=== PATIENT | female | born 1990 | race Caucasian/White ===

== ENCOUNTER 2017-11-17 10:57 | Emergency (ER) | payer BC ==
[2017-11-17] MEDS ORDERED: methylPREDNISolone Sodium Succinate 125 MG/2 ML SDV IM ONE (11:39)
[2017-11-17] MEDS ORDERED: Ketorolac 60 MG/2 ML SDV IM ONE (11:39)
--- NOTE | 2017-11-17 11:39 | EDM.PDOC ---
ED HPI GENERAL MEDICAL PROBLEM - General Chief Complaint: Neck Problem Stated Complaint: NECK PAIN Time Seen by Provider: 11/17/17 11:25 Source of Information: Reports: Patient History Limitations: Reports: No Limitations - History of Present Illness INITIAL COMMENTS - FREE TEXT/NARRATIVE: 27 YO WF presents to ER complaining of right sided neck pain which began after waking up this am. Pt reports pain with movement of her neck. Pt denies headache , fever/chills or N/V. Pt with no history of neck injuries or previous episodes of neck pain. Pt denies any radiating pain to upper or lower extremities. Onset Date: 11/17/17 Onset Time: 07:00 Location: Reports: Neck Right Neck Pain Score (Numeric/FACES): 6 - Related Data Allergies Allergy/AdvReac Type Severity Reaction Status Date / Time No Known Allergies Allergy Verified 11/17/17 11:09 Home Meds: Home Meds Cyclobenzaprine [Flexeril] 10 mg PO TID PRN #10 tab 11/17/17 [Rx] predniSONE 20 mg PO WITHBREAKFAST #15 tab 11/17/17 [Rx] traMADol HCl [Ultram] 50 mg PO Q6HR PRN #10 tablet 11/17/17 [Rx] Past Medical History - Past Health History Medical/Surgical History: Denies Medical/Surgical History Social & Family History - Tobacco Use Smoking Status *Q: Current Every Day Smoker Years of Tobacco use: 10 Packs/Tins Daily: 1 - Alcohol Use Days Per Week of Alcohol Use: 1 Number of Drinks Per Day: 2 Total Drinks Per Week: 2 - Recreational Drug Use Recreational Drug Use: No ED ROS GENERAL - Review of Systems Review Of Systems: See Below Constitutional: Reports: No Symptoms HEENT: Reports: No Symptoms Respiratory: Reports: No Symptoms Cardiovascular: Reports: No Symptoms Endocrine: Reports: No Symptoms GI/Abdominal: Reports: No Symptoms : Reports: No Symptoms Musculoskeletal: Reports: Neck Pain Skin: Reports: No Symptoms Neurological: Reports: No Symptoms Psychiatric: Reports: No Symptoms Hematologic/Lymphatic: Reports: No Symptoms Immunologic: Reports: No Symptoms ED EXAM, UPPER BACK/NECK PAIN - Physical Exam Exam: See Below Exam Limited By: No Limitations General Appearance: Alert, WD/WN, No Apparent Distress Throat/Mouth Exam: Normal Inspection, Normal Lips, Normal Teeth, Normal Gums, Normal Oropharynx, Normal Voice, No Airway Compromise Head Exam: Atraumatic, Normocephalic Neck Exam: Muscle Spasm, Painful Range of Motion, Tenderness, Tender Lateral. No: Paraspinous Muscle Tender, Spinous Processes Tender, Stiff Neck, Tender Midline Nexus Criteria: No: Posterior, Midline Cervical Tenderness, Evidence of Intoxication, Altered Level of Consciousness, Focal Neurological Deficit, Painful Distraction Injuries Cardiovascular/Respiratory: Regular Rate, Rhythm, No M/R/G, Normal Peripheral Pulses, No JVD, Normal Breath Sounds, No Respiratory Distress GI/Abdominal: Normal Bowel Sounds, Soft, Non-Tender, No Organomegaly, No Distention, No Abnormal Bruit, No Mass Back Exam: Normal Inspection, Full Range of Motion, NT Extremities: Normal Inspection, Normal Range of Motion, Non-Tender, No Pedal Edema, Normal Capillary Refill Neurologic: survey research associate II-XII nml As Tested, No Motor/Sensory Deficits, Alert, Normal Mood/Affect, Oriented x 3 Psychiatric: Normal Affect, Normal Mood Skin Exam: Normal Color, Warm/Dry Lymphatic: No Adenopathy Course - Vital Signs Last Recorded V/S: Last Vital Signs Temp 35.7 C 11/17/17 11:19 Pulse 72 11/17/17 11:19 Resp 16 11/17/17 11:19 BP 115/66 11/17/17 11:19 Pulse Ox 98 11/17/17 11:19 - Orders/Labs/Meds Orders: Active Orders 24 hr Category Date Time Status Ketorolac [Toradol] Med 11/17/17 11:39 Once 60 mg IM ONETIME ONE methylPREDNISolone Sod Succ [Solu-MEDROL] Med 11/17/17 11:39 Once 125 mg IM ONETIME ONE Departure - Departure Time of Disposition: 12:00 Disposition: Home, Self-Care 01 Condition: Good Clinical Impression: Torticollis - Discharge Information Prescriptions: traMADol HCl [Ultram] 50 mg PO Q6HR PRN #10 tablet PRN Reason: Pain Cyclobenzaprine [Flexeril] 10 mg PO TID PRN #10 tab PRN Reason: Muscle Spasm predniSONE 20 mg PO WITHBREAKFAST #15 tab Instructions: Neck Exercises, Acute Torticollis, Adult Referrals: Hernandez Rosa PA-C [Primary Care Provider] - Forms: ED Department Discharge Additional Instructions: 1. discharge home 2. heat/stretching/massage to neck 3. ultram/flexeril/prednisone 4. follow up with PCP for further evaluation and treatment 5. return to ER for worsening symptoms - My Orders Last 24 Hours: My Active Orders 11/17/17 11:39 Ketorolac [Toradol] 60 mg IM ONETIME ONE methylPREDNISolone Sod Succ [Solu-MEDROL] 125 mg IM ONETIME ONE - Assessment/Plan Last 24 Hours: My Active Orders 11/17/17 11:39 Ketorolac [Toradol] 60 mg IM ONETIME ONE methylPREDNISolone Sod Succ [Solu-MEDROL] 125 mg IM ONETIME ONE Assessment:: 1. Torticollis Plan: 1. discharge home 2. heat/stretching/massage to neck 3. ultram/flexeril/prednisone 4. follow up with PCP for further evaluation and treatment 5. return to ER for worsening symptoms
[2017-11-17 12:10] VITALS: BP 116/65
== END 2017-11-17 12:11 | disposition home or self-care (01) ==
LOC: KA.ED 10:57
DX: M43.6 Torticollis (principal); F17.210 Nicotine dependence, cigarettes, uncomplicated
CPT/HCPCS: 96372; 99283; J1885; J2930